=== PATIENT | male | born 1965 | race Caucasian/White ===

== ENCOUNTER 2016-09-03 17:33 | Emergency (ER) | payer OTHER, MEDICAID ==
[2016-09-03] MEDS ORDERED: fentaNYL-PF 50 mCg/mL 2 mL Inj IVPUSH PRN ×2 (17:40→19:15)
[2016-09-03] MEDS ORDERED: Ondansetron 2 mg/mL 2 mL Inj IVPUSH PRN (17:40)
--- NOTE | 2016-09-03 17:48 | ED.REPORT ---
HPI-Trauma Minor / Fall Date of Service September 03, 2016 ED Provider: Iftikhar Sandoval MD 51 y/o male with no reported hx presents to the ED via EMS complaining of abdominal pain and left arm pain. 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 His fall was broken by the rope which wrapped around his left arm. His abdomen and chest were crushed between the logs.He described his abdominal pain as a burning sensation and reports it is exacerbated with movement.The pt reports numbness and tingling in his extremities. He denies hitting his head and LOC. The pt had been hanging in the tree for 1.5 hours before the EMS arrived. His BP en route was 160/80. The pt reports his last tetanus shot was about 5 years ago. Nursing Notes Stated Complaint: TRAUMA Nursing Notes Reviewed: Yes Allergies: Coded Allergies: No Known Allergies (Unverified , 09/03/16) No Active Prescriptions or Reported Meds General Time Seen by MD: 17:36 Chief Complaint Fall Hx Obtained From: Patient, EMS Arrived By: Ambulance Onset Occurred: 1 - 4 hours ago Symptom Duration: Since onset Caused by: Fall from height... (>50 feet) Location: Abdomen Quality: Burning Severity: Current: Severe Severity: Maximum: Severe Recent Healthcare: No recent doctor visit Similar Sx Previous: No Past Medical History Past Medical History none reported Past Surgical History none reported Smoking History Smoker Current Status UNK Social History Alcohol Use: "Social" Drug Use: THC Other Social History: Good social support Ambulatory Status Independent Review of Systems Musculoskeletal: Reports: Extremity pain (Left arm) Neurologic: Reports: Numbness (in extremities), Denies: Change LOC, Headache Complete sys rev & neg: except as marked. Cardiovascular: Reports: Chest pain GI: Reports: Abdominal pain Physical Exam Initial Vital Signs Time: 2101 Heart Rate = 65 BP = 145/87 RR = 12 O2 = 100 GCS score = 4/5/6 Initial VS: Reviewed Head / Eyes: Atraumatic, Normocephalic, PERRL ENT: Mucous membranes moist, Conjunctiva normal, No scleral icterus Back: No CVA tenderness General/Constitutional: Awake, Alert, No acute distress, Cooperative Respiratory / Chest: Atraumatic, Breath sounds NL, Breath sounds = bilat, No respiratory distress, No rales, No rhonchi Trauma - Chest Specific: Negative: Chest wall deform bilat, Crepitus bilateral No chest wall tenderness. Cardiovascular: Heart rate NL, Regular rhythm, Heart sounds NL, No gallop, No murmurs Heart Rate / Rhythm: Negative: Tachycardia Abdomen: Soft, No guarding, No rebound Tenderness/Guarding/Rebound: Positive: Tender RUQ..., Tender epigastric Trauma - General: Negative: Abrasion Upper Extremity / MS: Full range of motion, No deformity, Neurologic intact, Vascular intact Left Forearm: Positive: Swelling present... Right upper extremity normal. Bounding 2+ pulse in left wrist. Swelling and laceration present across the antecubital fossa. Decreased 2 point sensation between index and middle fingers but no clear cut pattern. Left hand recreation therapy teacher normal. Left arm extension and flexion normal Compartments of the left forearm are soft without evidence of compartment syndrome. Lower Extremity / Pelvis / MS: Full range of motion, Non-tender, No deformity, Neurologic intact, Vascular intact Pelvis normal. Skin: Color NL, Warm, Dry Small abrasion on left cheek. Neurologic: Oriented X3, Speech NL, No motor deficits Interpretation & Diagnostics Lab Results Interpretation Result Diagram: 09/03/16 1737 09/03/16 1737 Test 09/03/16 17:37 White Blood Count 13.9th/mm3 (3.8-10.1) Red Blood Count 4.53mil/mm3 (4.40-5.80) Hemoglobin 14.5g/dL (13.8-17.2) Hematocrit 42.0% (41.0-50.0) Mean Corpuscular Volume 92.7fL (81-100) Mean Corpuscular Hemoglobin 32.0pg (27.0-35.0) Mean Corpuscular Hemoglobin Concent 34.5% (32.0-37.0) Red Cell Distribution Width 13.7% (12.3-15.4) Platelet Count 349bil/L (150-400) Neutrophils (%) (Auto) 74.1% (40-74) Lymphocytes (%) (Auto) 17.0% (14-46) Monocytes (%) (Auto) 7.9% (4-12) Eosinophils (%) (Auto) 0.5% (0-5) Basophils (%) (Auto) 0.4% (0-3) Prothrombin Time 10.2sec (8.1-12.5) Prothromb Time International Ratio 0.95ratio Activated Partial Thromboplast Time 28.8sec (22.8-33.0) Sodium Level 142mEq/L (134-144) Potassium Level 4.1mEq/L (3.5-5.2) Chloride Level 102mEq/L (97-108) Carbon Dioxide Level 26mmol/L (18-29) Blood Urea Nitrogen 19mg/dL (6-24) Creatinine 1.29mg/dL (0.76-1.27) Estimat Glomerular Filtration Rate 62mL/min (>59) Glucose Level 81mg/dL (60-99) Calcium Level 9.9mg/dL (8.5-10.1) Total Bilirubin 0.4mg/dL (0.0-1.2) Aspartate Amino Transf (AST/SGOT) 53U/L (0-50) Alanine Aminotransferase (ALT/SGPT) 38U/L (0-44) Alkaline Phosphatase 120U/L (25-150) Total Protein 7.6g/dL (6.4-8.4) Albumin 4.6g/dL (3.4-5.0) Alcohols < 10mg/dL (0-10) Lab Results Interpretation: CBC mild leukocytosis CMP mild renal insufficiency Tox screen positive for methamphetamines EtOH negative X-Ray Interpretation Xray Interpretation: IMPRESSION: Severe laceration however no fracture identified. Dictated by: Melquiades Emery M.D. on 09/03/2016 at 18:18 Approved by: Melquiades Emery M.D. on 09/03/2016 at 18:20 X-Ray Ordered: Elbow left Interpretation / Wet Read by: Interpret - Radiologist CT Head Interpretation IMPRESSION: No acute intracranial process. Dictated by: Melquiades Emery M.D. on 09/03/2016 at 18:33 Approved by: Melquiades Emery M.D. on 09/03/2016 at 18:35 Study: Head CT no contrast Interpretation / Wet Read by: Interpret - Radiologist Procedures Laceration Management Time: 19:37 Procedure Performed by: ED physician Consent / Setup / Site Prep: Informed consent provided, Consent from patient , Time-out performed, Hand hygiene observed, Stand sterile technique Location of Wound: Antecubital fossa Wound Length: 6 cm Local Anesthesia: Bupivacaine 0.5% (with epinephrine) Debridement: Yes Irrigation: Copious (> 2L used tissue safe soap) Foreign Body Explore / Removal: Explored for foreign body, Removed multiple (small rope fibers) Undermining / Margins: Undermining minimal Repair Skin: Nylon (3O) # Sutures - Skin: 9 Closure Layers: 1 Post-Procedure / Complications: Antibiotic oint applied, Dressing applied, No complications, Tolerated procedure well, Patient stable Re-Eval/Medical Decision Med Decision/Clinical Course This is a 51-year-old male presented as a standby trauma following an injury that 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 The patient was about 100 feet off the ground, sawing a part of a large tree when the section swung down on a rope and temporally hit him in the chest and abdomen, then sounds like it got wrapped on a rope around his left arm for a period. It then took about an hour to get him down from the elevated location up on the tree. He reports he was never hit her head, he has a minor abrasion on the face , but the mechanism involved the chest and abdomen use or both. Patient had severe left arm pain as well. Dominant. He has no additional complaints. Not recall his last tetanus. Arrival patient awake alert oriented and cooperative. He is in no severe distress, but appears mildly uncomfortable. He has an abrasion on the left face. His chest wall abnormality tender-but I do not appreciate visible other signs of trauma. There is no crepitus, he is not tachypneic or dyspneic, lungs are clear, and abdomen is soft nontender without visible bruising or abrasion. Extended fast at bedside was negative. On examination of the left arm, he has a rope burn and abrasion around the a sickly the elbow and antecubital fossa, and there has been a tear of the antecubital fossa with about a 6 cm complex laceration. He has a bounding pulses with no evidence of vascular injury. As intact recreation therapy teacher, without gross deficit of the hand. He is poor in terms of 2 point discrimination - this is also true of the nondominant side is they are symmetric. I can not map out any particular neurologic deficit, nor does he complain of any clear neurologic symptoms. The forearm compartments are soft, without evidence of compartment syndrome. He has decreased range of motion at the elbow secondary to pain, limiting my ability to determine if there is been complete tendon rupture sets it to the biceps or others structures. The patient had CT imaging the head, chest abdomen pelvis all which was negative. He had plain radiographs of the left elbow which were negative. Size and nature of the laceration and the mechanism involved with that tearing, I discussed the case with orthopedics for their recommendations on wound management. Given the intact vascular status, they recommended careful washout , and then loose approximation. So the wound was anesthetized with bupivacaine with epinephrine, he was divided, a few small pieces of fiber were removed, and abdominal wound was irrigated with 2 L of normal saline aggressively. No retained foreign body was evident on exploration. The wound was then slowly approximated, with 3-0 nylon interrupted sutures. The patient received dictate update, appeared Ancef. He is placed in a splint and sling. However, waiting for his discharge instructions it appears that he eloped. The nurses calling him to try relieve the importance goes I talked about the follow up with the orthotic clinic as there remains a concern for significant soft tissue injury, and in in additional close wound care follow-up, there may be indication for delayed surgical pair such as a tendon injury etc. The patient did receive a prescription for cephalexin, and oxycodone. Source of Hx: EMS Re-Evaluation/Progress #1: Time of Eval: 18:51 Patient Status: Mild relief Re-Evaluation/Progress Note: Rechecked pt. Pt refuses more pain medication. Discussed lab, imaging results and diagnosis. Informed the pt of the plan to discharge post loosely closing left elbow injury. Informed the pt to follow up with Dr. Vasquez.RTER warning given. All questions addressed. Re-Evaluation/Progress #2: Time of Eval: 19:35 Patient Status: Moderate relief Re-Evaluation/Progress Note: Performed laceration management. Re-Evaluation/Progress #3: Time of Eval: 21:00 Re-Evaluation/Progress Note: Pt eloped from the ED. He did not wait for his discahrge papers. Consultation : Referral / Consult Name: Larry Vasquez MD Consulted With: Orthopedic Call Returned at: 18:29 Cleat Blanker: Will see in office, Agrees with eval Note: Dr. Vasquez recommends irrigating and doing a loose closure on the left elbow. He'd like the pt to follow up with him in his office. Counseled Regarding: Diagnosis, Lab results, Need for follow-up, When/why to return to ED Discharge & Departure Impression: Primary Impression: Laceration of left upper arm Encounter type: initial encounter Qualified Code: S41.112A - Laceration without foreign body of left upper arm, initial encounter Additional Impressions: Contusion, chest wall Encounter type: initial encounter Laterality: left Qualified Code: S20.212A - Contusion of left front wall of thorax, initial encounter Methamphetamine use Contusion, abdominal wall Disposition: Home Discharge Condition All VS Reviewed: Yes Additional Instructions: 1. No internal injuries were appreciated on CT scans of the chest abdomen and pelvis. 2. No fractures were appreciated on the left arm and elbow. 3. However you suffered extensive soft tissue injury around the elbow (" the antecubital fossa"), and at this time I cannot fully exclude the possibility of underlying muscle/tendon injury. The complex wound was loosely closed to help promote healing and he will need to be seen and rechecked at the office of Dr. Vasquez - as of this point I cannot exclude tendon and muscle injury that might require delayed repair. 4. Keep the wound clean. It is okay to shower, but do not soak. Apply antibiotic ointment daily. 5. Take the antibiotic cephalexin 500 mg 4 times a day for 7 days. 6. Return immediately if any signs of infection: Increasing redness, swelling, pain, fever, purulent drainage... 7. Take Ibuprofen 400-800 mg 3 times a day for pain. 8. If needed for more severe pain take oxycodone 1-2 tabs every 4-6 hours. Note: This medication contains a narcotic and causes drowsiness. No driving for at least 4 hours after taking. Referrals: Larry Vasquez MD Scribe Attestation Portions of this note were transcribed by Morgan Angela. I, , personally performed the history, physical exam and medical decision-making;I reviewed and confirmed the accuracy of the information in the transcribed note. Signed by Seamus Galvan. 09/03/16 [id number] copies to: Larry Vasquez MD, Matthew F MD September 03, 2016 17:48 Morgan Angela September 03, 2016 17:57
[2016-09-03] MEDS ORDERED: TdaP Vaccine 0.5 mL Inj IM ONE (17:50)
[2016-09-03] MEDS ORDERED: CeFAZolin Inj 2 GM in IV Premix 1 EACH IV ONE (17:50)
[2016-09-03 17:54] LABS: BASOPHILS % (AUTO) 0.4 % (0-3); EOSINOPHILS % (AUTO) 0.5 % (0-5); MONOCYTES % (AUTO) 7.9 % (4-12); Mean Corpuscular Volume 92.7 fL (81-100); NEUTROPHILS % (AUTO) 74.1 % (40-74); Platelet Count 349 bil/L (150-400)
[2016-09-03 18:08] LABS: INR 0.95 ratio
--- NOTE | 2016-09-03 18:22 | DRSVH ---
PROCEDURE: X-RAY LEFT ELBOW COMPLETE, MINIMUM THREE VIEWS ([id number]) INDICATIONS: pain TECHNIQUE: 3 views of the elbow were acquired. COMPARISON: None. FINDINGS: Bones: No fractures or dislocations. No suspicious bony lesions. Soft tissues: No elbow joint effusion. No suspicious soft tissue calcifications. IMPRESSION: Severe laceration however no fracture identified. Dictated by: Melquiades Emery M.D. on 09/03/2016 at 18:18 Approved by: Melquiades Emery M.D. on 09/03/2016 at 18:20
[2016-09-03] MEDS ORDERED: Bupivacaine 0.5%/EPI 50 mL Inj INFILTRATE ONE (18:35)
--- NOTE | 2016-09-03 18:36 | DRSVH ---
PROCEDURE: CT BRAIN WITHOUT CONTRAST ([id number]) INDICATIONS: trauma TECHNIQUE: Noncontrast 4.5 mm thick angled axial sections acquired from the foramen magnum to the vertex, with c oronal reformats. COMPARISON: None. FINDINGS: Image quality: Excellent. CSF spaces: Basal cisterns are patent. No extra-axial fluid collections. The ventricles are symmet michaelle in size and shape. Brain: No intracranial bleeds or masses. There is cerebral volume loss for age, with resultant vent ricular and sulcal prominence. There are periventricular and deep white matter chronic small vessel ischemic changes. There is intracranial internal carotid artery atherosclerosis. Skull and face: Calvarium and visualized facial bones appear intact, without suspicious lesions. Sinuses: Near-complete opacification of the left maxillary sinus. IMPRESSION: No acute intracranial process. Dictated by: Melquiades Emery M.D. on 09/03/2016 at 18:33 Approved by: Melquiades Emery M.D. on 09/03/2016 at 18:35
--- NOTE | 2016-09-03 18:47 | DRSVH ---
PROCEDURE: CT CHEST, ABDOMEN AND PELVIS WITH CONTRAST ([id number]) INDICATIONS: trauma TECHNIQUE: After the administration of intravenous contrast, 5 mm thick sections acquired from the lung apices t o the symphysis. 5 mm thick coronal and sagittal reformats were acquired. Additional 7 mm thick cor onal maximum intensity projection (MIP) reformats acquired through the lungs. Optional 10-minute del ayed imaging may be performed from the kidneys to the bladder. For radiation dose reduction, the fol lowing was used: automated exposure control, adjustment of mA and/or kV according to patient size. COMPARISON: None. FINDINGS: Image quality: Excellent. CHEST: Lungs: No pulmonary contusions or lacerations. Scattered scarring/atelectasis. Right apical blebs in cidentally noted. No acute airspace opacities. No pneumothorax or hemothorax. Central and peripher al airways appear patent and normal in caliber. Mediastinum: No mediastinal hematomas. Heart size is normal. No pericardial effusion. Thoracic ao rta and pulmonary arteries demonstrate normal size and enhancement. No mediastinal or hilar adenopat hy. Esophagus is normal in caliber. No hiatal hernia. Chest wall: No rib fractures. No subcutaneous emphysema. No axillary or supraclavicular adenopathy . Thyroid gland negative. ABDOMEN: Solid organs: Liver and spleen are normal in size and enhancement, without lacerations. Gallbladder negative. Biliary system is non-dilated. Pancreas enhances normally, without transection. No adre nal hematomas. Both kidneys enhance normally, without hydronephrosis or lacerations. Peritoneum and bowel: No free fluid or air. Unenhanced bowel loops demonstrate normal wall thicknes s and caliber. Nodes and vessels: No retroperitoneal or mesenteric adenopathy. Aorta and inferior vena cava are no rmal in size and enhancement. Miscellaneous: No ventral hernias. PELVIS: Genitourinary: Bladder wall thickness is normal. Miscellaneous: Right angle hernias present with fluid and possible decompressed bowel loops although technically indeterminate. Please correlate clinically. No evidence of obstruction. This is partially obscured by streak artifact from overlying support equipment Bones: Pelvic ring and hip joints appear intact. No vertebral compression fractures. Ununited L1 ri ght transverse process although this appears chronic. Diffuse discogenic changes. IMPRESSION: No acute abnormality identified. Right inguinal hernia however this is partially obscured by streak artifact from overlying support eq uipment as detailed above. Recommend clinical correlation and if needed nonemergent ultrasound or CT (with oral contrast) could be performed Dictated by: Melquiades Emery M.D. on 09/03/2016 at 18:35 Approved by: Melquiades Emery M.D. on 09/03/2016 at 18:46
[2016-09-03] MEDS ORDERED: HYDROmorphone 0.5 mg/0.5 mL iSecure Syringe IVPUSH PRN (18:50)
[2016-09-03] MEDS ORDERED: _oxyCODONE/APAP 5-325 mg Tablet PO PRN (20:20)
[2016-09-03] MEDS ORDERED: _Cephalexin 500 mg Capsule PO SCH (20:30)
[2016-09-03] MEDS ORDERED: Bacitracin Ointment Packet TOPICAL ONE (20:50)
== END 2016-09-03 21:40 | disposition home or self-care (01) ==
LOC: EDBD 17:33 → SED 17:33
DX: S41.112A Laceration without foreign body of left upper arm, initial encounter (principal); S20.212A Contusion of left front wall of thorax, initial encounter; S30.1XXA Contusion of abdominal wall, initial encounter; F15.10 Other stimulant abuse, uncomplicated; W17.89XA Other fall from one level to another, initial encounter; Y93.H9 Activity, other involving exterior property and land maintenance, building and construction; Y92.89 Other specified places as the place of occurrence of the external cause; Y99.0 Civilian activity done for income or pay; Z23 Encounter for immunization
CPT/HCPCS: 12032; 36415; 70450; 71260; 73080; 74177; 80053; 85025; 85610; 85730; 86850; 90471; 90715; 96365; 96375; 99285; G0390; G0480; J0690; J2405; J3010; Q9967

== ENCOUNTER 2016-09-07 14:50 | Emergency (ER) | payer OTHER ==
[~2016-09-07] VITALS: Ht 182.9 cm; Wt 72.7 kg
[2016-09-07 14:53] VITALS: BP 160/98; PULSE 100; RESP 22; O2SAT 99
--- NOTE | 2016-09-07 16:05 | ED.REPORT ---
HPI-Extremity Problem Upper Date of Service September 07, 2016 ED Provider: Evert Johnson PA-C Austen is an otherwise healthy 51-year-old male presenting with chief complaint of left arm pain. Seen in this department for days ago after treatment cutting accident that resulted in and him being suspended above the ground on a rope more than an hour. Also contusion to his ribs, left arm laceration and potential soft tissue injury. Complains of pain in his arm, out of pain medications. Patient left the department prior to receiving written discharge instructions. Reports an appointment with orthopedics for next . Denies numbness, tingling, weakness in the left hand. Denies fevers , chills, malaise. Nursing Notes Stated Complaint: LEFT ARM PAIN AND SWELLING Chief Complaint: Extremity Trauma Nursing Notes Reviewed: Yes Allergies: Coded Allergies: No Known Allergies (Unverified , 09/03/16) Scheduled PRN oxyCODONE (oxyCODONE) 5 Mg Tablet 5-10 MG PO QID PRN PRN For Pain General Time Seen by MD: 15:35 Chief Complaint Arm injury left Past Medical History Past Medical History none reported Past Surgical History none reported Smoking History Smoker Current Status UNK Social History Alcohol Use: "Social" Drug Use: THC Other Social History: Good social support Ambulatory Status Independent Review of Systems Review of Systems Note: Negative unless stated otherwise in history of present illness Physical Exam General: Well appearing, well developed, well nourished, no acute distress. Left arm: Splint is clean and intact. Mild swelling in left hand, brisk capillary refill, sensation intact, emissions engineer intact. Muscles of forearm are soft and nontender. Dressing over the laceration is dry. Skin is dressing is warm dry and nontender. Head: Atraumatic, normocephalic. Eyes: No scleral icterus or injection. No discharge. Vision grossly intact. ENT: Voice clear, hearing grossly intact. Respiratory: Regular rate and rhythm. Breath sounds present, clear to auscultation and equal bilaterally. No respiratory distress. No increased work of breathing, speaks in complete sentences. Gastrointestinal: Abdomen flat and non-tender without guarding or rebound. Bowel sounds normoactive. Skin: Warm and dry. Neurological: Grossly nonfocal. Psychological: Alert and oriented. Speech appropriate, linear and logical. Behavior appropriate. Initial Vital Signs Vital Signs (First) Date Time Temp Pulse Resp B/P Pulse Ox O2 Delivery O2 Flow Rate FiO2 09/07/16 14:53 37.2 100 22 160/98 99 09/07/16 16:21 Room Air Initial VS: Vital signs abnormal (elevated blood pressure) Re-Eval/Medical Decision Med Decision/Clinical Course 81-year-old male evaluated in this department 3 days ago after logging accident. Soft tissue injury left arm as well as a laceration. Patient departed prior to receiving written discharge instructions. Today complains of pain and is out of pain medications. He has follow-up arranged for next . Physical examination is reassuring regarding compartment syndrome, local or systemic infection. Splint is adjusted for comfort. I provided original discharge instructions as well as instructions for [id number] analgesia with a small amount of oxycodone to supplement with precautions. Advised regarding orthopedic follow-up, provided emergent return precautions. Patient verbalizes understanding of and consent to the plan Discharge & Departure Impression: Primary Impression: Soft tissue injury of left upper arm Additional Impression: Laceration of left upper arm Encounter type: subsequent encounter Qualified Code: S41.112D - Laceration without foreign body of left upper arm, subsequent encounter Disposition: Home Discharge Condition All VS Reviewed: Yes Condition: Stable Additional Instructions: Evaluation for left arm pain and department includes history and physical examination. I believe his injury is progressing as expected and there is no indication of a immediately dangerous condition such as compartment syndrome. The dressing appears clean and dry. We have readjusted the wrap on your splint for comfort. Instructions copied from Dr. King original note from your previous visit: 1. No internal injuries were appreciated on CT scans of the chest abdomen and pelvis. 2. No fractures were appreciated on the left arm and elbow. 3. However you suffered extensive soft tissue injury around the elbow (" the antecubital fossa"), and at this time I cannot fully exclude the possibility of underlying muscle/tendon injury. The complex wound was loosely closed to help promote healing and he will need to be seen and rechecked at the office of Dr. Vasquez - as of this point I cannot exclude tendon and muscle injury that might require delayed repair. 4. Keep the wound clean. It is okay to shower, but do not soak. Apply antibiotic ointment daily. 5. Take the antibiotic cephalexin 500 mg 4 times a day for 7 days. 6. Return immediately if any signs of infection: Increasing redness, swelling, pain, fever, purulent drainage... 7. Take Ibuprofen 400-800 mg 3 times a day for pain. 8. If needed for more severe pain take oxycodone 1-2 tabs every 4-6 hours. Note: This medication contains a narcotic and causes drowsiness. No driving for at least 4 hours after taking. I would add that she can also take 1000 mg of acetaminophen (Tylenol) 3 times a day along with the ibuprofen. I will write a prescription for a small amount of oxycodone to be taken for pain not controlled by these other 2 medications. Follow-up with orthopedics as planned. Return to the emergency department for any new or worsening symptoms including increasing pain, fever or the development of a cold/numb hand. Referrals: Larry Vasquez MD EDSupervising Provider for APC: Niyah Small MD, Seth PA-C September 07, 2016 16:05
[2016-09-07] MEDS ORDERED: OXYC5TAB72 PO (16:06)
[2016-09-07 16:21] VITALS: BP 150/95; PULSE 97; RESP 16; O2SAT 98
== END 2016-09-07 16:21 | disposition home or self-care (01) ==
LOC: SED 14:50
DX: S41.112D Laceration without foreign body of left upper arm, subsequent encounter (principal); S49.82XD Other specified injuries of left shoulder and upper arm, subsequent encounter; W20.8XXD Other cause of strike by thrown, projected or falling object, subsequent encounter; Y93.89 Activity, other specified; Y92.69 Other specified industrial and construction area as the place of occurrence of the external cause; Y99.0 Civilian activity done for income or pay